=== PATIENT | female | born 1940 | race Caucasian/White ===

== ENCOUNTER 2021-03-19 12:50 | Outpatient (CLI) | payer MEDICARE, OTHER | END 2021-03-19 12:51 | disposition home or self-care (01) | LOC: BICULT 12:50 | PROVIDERS: ATTEND Family Medicine | DX: M79.662 Pain in left lower leg (principal) ==

== ENCOUNTER 2023-01-04 14:29 | Outpatient (CLI) | payer MEDICARE, OTHER | END 2023-01-04 14:30 | disposition home or self-care (01) | LOC: BICRAD 14:29 | PROVIDERS: ATTEND Family Medicine | DX: S22.22XD Fracture of body of sternum, subsequent encounter for fracture with routine healing (principal) | CPT/HCPCS: 71120 ==

== ENCOUNTER 2024-12-11 09:57 | Outpatient (CLI) | payer MEDICARE, OTHER ==
[2024-12-11 11:48] LABS: #Basophils 0.04 10x3/uL (0.0-0.2); %Basophils 0.6 % (0.0-1.0); %Eosinophils 2.7 % (0.0-10.0); %Lymphocytes 19.7 % (21.0-51.0); %Monocytes 9.6 % (0.0-10.0); %Neutrophils 67.3 % (42.0-75.0); Hematocrit 36.2 % (36.0-47.0); Hemoglobin 11.9 g/dL (12.0-16.0); Mean Corpuscular HGB CONC 32.9 g/dL (32.0-36.0); Mean Corpuscular Hemoglobin 33.4 pg (27.0-31.0); Mean Corpuscular Volume 101.7 fL (78.0-98.0); Mean Platelet Volume 9.6 fL (7.4-10.4); Platelet Count 297 10x3/uL (130-400); RBC Distribution Width 12.6 % (11.5-14.5); Red Blood Cell (RBC) Count 3.56 mill/uL (4.20-5.40)
[2024-12-11 12:03] LABS: Bilirubin Negative (Negative); Blood, Urine Negative (Negative); Clarity Clear (Clear); Glucose, Urine (Dipstick) Normal (Negative); INR-International Normal Ratio 1.1; Ketone, Urine Negative (Negative); Leukocyte 500 Leu/uL (Negative); Nitrite Negative (Negative); Protein, Urine (Dipstick) Negative (Neg-Trace); Prothrombin Time 13.7 sec (12.0-14.7); Urobilinogen Normal mg/dL (Less than 2)
[2024-12-11 12:08] LABS: Anion Gap 11 mmol/L (10-20); BUN (Urea Nitrogen) 17 mg/dL (9.8-20.1); Calc. Creatinine Clearance 0 mL/min (70-130); Calcium 9.2 mg/dL (7.8-10.44); Carbon Dioxide 29 mmol/L (23-31); Chloride 102 mmol/L (98-107); Estimated GFR 90; Glucose 79 mg/dL (83-110); Potassium 4.2 mmol/L (3.5-5.1); Sodium 138 mmol/L (136-145)
== END 2024-12-11 09:58 | disposition home or self-care (01) ==
LOC: LABBT 09:57
PROVIDERS: ATTEND Orthopaedic Surgery
DX: Z01.818 Encounter for other preprocedural examination (principal); M17.11 Unilateral primary osteoarthritis, right knee
CPT/HCPCS: 71046; 80048; 81003; 85025; 85610; 87081; 93005; 93010

== ENCOUNTER 2024-12-11 11:28 | Outpatient (CLI) | payer MEDICARE, OTHER | END 2024-12-11 11:29 | disposition home or self-care (01) | LOC: CT 11:28 | PROVIDERS: ATTEND Orthopaedic Surgery | DX: M17.11 Unilateral primary osteoarthritis, right knee (principal); Z01.818 Encounter for other preprocedural examination | CPT/HCPCS: 71046; 80048; 81003; 85025; 85610; 87081; 93005; 93010 ==